=== PATIENT | male | born 1960 | race Caucasian/White ===

== ENCOUNTER 2023-10-08 06:01 | Emergency (ER) | payer MEDICARE ==
[~2023-10-08] VITALS: Ht 177.8 cm; Wt 70.5 kg
[2023-10-08 06:03] VITALS: TEMP 97.9
[2023-10-08] MEDS ORDERED: Albuterol/Ipratropium 3 MG-0.5 MG/3 ML Neb Soln IH ONE (07:30)
[2023-10-08] MEDS ORDERED: PROAIR HFA0.09 MG/AC IH (08:00)
--- NOTE | 2023-10-08 09:21 | NUR ---
liner worker was informed pt has questions regarding services, [employer] bus, and is new to the [facility]. SW spoke with pt and was informed he would like a bus ticket, information on the [employer] [facility], and day services. Pt reports he has Bipolar Disorder. RHYS spoke with Kelsey at [facility] [phone] who states without diagnosis and supporting documentation, it would be difficult to assist in any way with waivers for day services. She advised to reach out to [facility]. SW called [facility] [phone] to discuss options for pt. They suggested patient go to the intake center any day from 9-3pm to complete an intake and they can help determine what services are need. Or pt can go to the [facility] anytime for a potential bed and other services. RHYS provided this information written down for pt, [employer] [facility] map, and two day bus tickets. SW attempted to complete an intake. Pt reports he is homeless and sometimes stays over at [facility] or at his friends' places, if they let him. Pt does not have a PCP or phone number.
[2023-10-08 09:25] VITALS: BP 121/77; PULSE 65
== END 2023-10-08 09:25 | disposition home or self-care (01) ==
LOC: COL.ER 06:01
DX: J43.9 Emphysema, unspecified (principal); F17.290 Nicotine dependence, other tobacco product, uncomplicated; F17.210 Nicotine dependence, cigarettes, uncomplicated; Z95.0 Presence of cardiac pacemaker

== ENCOUNTER 2023-10-08 18:07 | Emergency (ER) | payer MEDICARE ==
[~2023-10-08] VITALS: Ht 177.8 cm; Wt 75.0 kg
[~2023-10-08 18:07] MED LIST: PROAIR HFA0.09 MG/AC IH
[2023-10-08 18:16] VITALS: TEMP 97.2
[2023-10-08 19:08] LABS: BASO # 0.1 K/mm3 (0.0-0.2); BASO % 0.4 % (0.0-2.0); EOS # 0.3 K/mm3 (0.0-0.7); EOS % 1.9 % (0.0-4.0); GRAN # 10.2 K/mm3 (1.4-6.5); HEMATOCRIT 39.7 % (42.0-52.0); HEMOGLOBIN 13.3 g/dl (13.5-18.0); LYMPH # 2.4 K/mm3 (1.2-3.4); MEAN CELL VOLUME 93 fl (80.0-100.0); MEAN CORPUSCULAR HEMOGLOBIN 31 pg (27-31); MEAN CORPUSCULAR HGB CONC 34 g/dl (33.0-37.0); MEAN PLATELET VOLUME 9.4 fl (7.4-10.4); MONO % 7.1 % (1.7-9.3); PLATELET COUNT 205 K/mm3 (130-400); RED BLOOD COUNT 4.28 M/mm3 (4.20-5.60); REDCELL DISTRIBUTION WIDTH-CV 12.8 % (11.5-14.5)
[2023-10-08 19:25] LABS: ACETAMINOPHEN < 7.0 ug/mL (10-30); ALANINE AMINOTRANSFERASE 16 U/L (0-55); ALBUMIN 3.7 gm/dL (3.4-4.8); ALKALINE PHOSPHATASE 60 U/L (40-150); ANION GAP 7 mmol/L (7-16); AST,SGOT 19 U/L (5-34); BILIRUBIN,TOTAL 0.3 mg/dL (0.2-1.2); BLOOD UREA NITROGEN 14 mg/dL (8-26); CALCIUM 8.7 mg/dL (8.4-10.2); CARBON DIOXIDE 27 mmol/L (23-31); CHLORIDE 101 mmol/L (98-107); GLUCOSE 103 mg/dL (70-99); POTASSIUM 4.1 mmol/L (3.5-4.5); SODIUM 135 mmol/L (136-145); TOTAL PROTEIN 6.5 gm/dL (6.2-8.1)
[2023-10-08 19:31] LABS: ALCOHOL(ethanol),MEDICAL < 10 mg/dL (0-10); SALICYLATE < 5.0 mg/dL (15.0-30.0)
[2023-10-08 19:35] LABS: COLLECTION METHOD CLEAN CATCH
[2023-10-08 19:49] LABS: PH 6.5 (5.0-8.5); SQUAMOUS EPITHELIAL 0-2 /hpf (0-10); URINE APPEARANCE Clear (CLEAR/HAZY); URINE BACTERIA None Seen /hpf (NONE SEEN); URINE BLOOD Negative (NEGATIVE); URINE COLOR Straw (YELLOW); URINE GLUCOSE Negative (NEGATIVE); URINE KETONE Negative (NEGATIVE); URINE NITRATE Negative (NEGATIVE); URINE PROTEIN(semi-quant) Negative (NEGATIVE); URINE RBC None Seen /hpf (0-2); URINE UROBILINOGEN 0.2 E.U/dL (0.2-1.0)
[2023-10-08 20:01] LABS: TRICYCLIC ANTIDEPRESS URINE NEGATIVE (NEGATIVE)
[2023-10-08] MEDS ORDERED: Acetaminophen 500 MG TAB PO ONE (22:30)
[2023-10-08 22:53] VITALS: BP 120/68; PULSE 68
== END 2023-10-08 22:53 | disposition home or self-care (01) ==
LOC: COL.ER 18:07
PROVIDERS: Nurse Practitioner
DX: R45.851 Suicidal ideations (principal); F31.9 Bipolar disorder, unspecified; F17.210 Nicotine dependence, cigarettes, uncomplicated; Z79.899 Other long term (current) drug therapy